=== PATIENT | female | born 1980 | race African-American/Black ===

== ENCOUNTER 2017-11-08 15:04 | Inpatient (IN) | payer BC, OTHER ==
[2017-11-08 15:11] VITALS: BMI 34.0
[2017-11-08] MEDS ORDERED: AMPICILLIN VIAL 2 GM 2 GM in NS 100 ML IV + SPIKE MINIBAG* 100 ML IV SCH (15:15)
[2017-11-08 15:40] LABS: BILIRUBIN,URINE NEGATIVE (NEGATIVE); BLOOD/HEMOGLOBIN,URINE 4+ (NEGATIVE); GLUCOSE, URINE NEGATIVE (NEGATIVE); KETONES,URINE NEGATIVE (NEGATIVE); LEUKOCYTE ESTERASE ,URINE 3+ (NEGATIVE); NITRITES,URINE NEGATIVE (NEGATIVE); PROTEIN,URINE NEGATIVE (NEGATIVE); UROBILINOGEN,URINE NORMAL (NORMAL)
[2017-11-08] MEDS ORDERED: NS 100 ML IV 100 ML IV ONE (15:42)
[2017-11-08] MEDS ORDERED: D5LR 1L W PITOCIN 10 UNITS/L 10 UNITS/1,000 ML BAG IV ONE (15:42)
[2017-11-08] MEDS ORDERED: D5 1/2 NS 1000 ML 1,000 ML IV ONE (15:43)
[2017-11-08] MEDS ORDERED: D5 1/2 NS 1L W PITOCIN 20 UNITS/L 20 UNITS/1,000 ML BAG IV ONE (15:43)
[2017-11-08] MEDS ORDERED: AMPICILLIN VIAL 2 GM ONE (15:43)
[2017-11-08] MEDS ORDERED: PITOCIN ONE (15:43)
[2017-11-08 15:49] LABS: APPEARANCE,URINE HAZY (CLEAR); COLOR,URINE YELLOW (YELLOW); RBC,URINE 0-5 /HPF (NONE SEEN)
[2017-11-08 15:50] LABS: BACTERIA,URINE 1+ /HPF (NEGATIVE); SQUAMOUS EPITHELIAL CELL,UR FEW /HPF (NEGATIVE)
[2017-11-08 16:02] LABS: AMNISURE ROM TEST THERE IS A RUPTURE (NO RUPTURE)
[2017-11-08 16:10] LABS: BASOPHILS # (AUTO) 0.1 X10^3/uL (0.0-0.1); BASOPHILS % (AUTO) 1.1 % (0.2-1.0); EOSINOPHILS % (AUTO) 0.3 % (0.9-2.9); HEMATOCRIT 36.4 % (36.0-47.0); HEMOGLOBIN 12.3 g/dL (12.0-16.0); LYMPHOCYTES # (AUTO) 2.4 X10^3/uL (1.3-2.9); LYMPHOCYTES % (AUTO) 20.3 % (21.0-51.0); MEAN CORPUSCULAR HEMOGLOBIN 27.1 pg (27.0-34.0); MEAN CORPUSCULAR HGB CONC 33.8 g/dL (33.0-35.0); MEAN CORPUSCULAR VOLUME 80.3 fL (80.0-100.0); MEAN PLATELET VOLUME 9.5 fL (7.4-11.0); NEUTROPHILS # (AUTO) 8.5 x10^3/uL (2.2-4.8); NEUTROPHILS % (AUTO) 70.3 % (42.0-75.0); PLATELET COUNT 194 X10^3/uL (150.0-450.0); RED BLOOD COUNT 4.54 X10^6/uL (3.5-5.4); RED CELL DISTRIBUTION WIDTH 15.3 % (11.6-16.5); WHITE BLOOD COUNT 12.1 X10^3/uL (3.6-10.0)
[2017-11-08 16:16] LABS: BLOOD UREA NITROGEN 6 mg/dL (7-18); CALCIUM 8.5 mg/dL (8.5-10.1); CARBON DIOXIDE 20.9 mmol/L (21-32); CHLORIDE 106 mmol/L (98-107); CREATININE 0.68 mg/dL (0.55-1.02); SODIUM 139 mmol/L (136-145); eGFR BLACK RACES > 60 (>60); eGFR NON BLACK RACES > 60 (>60)
[2017-11-08] MEDS ORDERED: NUBAIN INJ 200 MG VIAL MULTIDOSE IVP PRN (16:29)
[2017-11-08] MEDS ORDERED: REGLAN INJ 10 MG VIAL IVP PRN ×2 (16:29→18:29)
[2017-11-08] MEDS ORDERED: PHENERGAN INJ 25 MG IV PRN ×3 (16:29→18:29)
[2017-11-08] MEDS ORDERED: PITOCIN IVP ONE (16:29)
[2017-11-08] MEDS ORDERED: D5LR 1L W PITOCIN 10 UNITS/L 10 UNITS/1,000 ML BAG IV PRN (16:29)
--- NOTE | 2017-11-08 16:56 | DR.OB ---
OB Quick Note - Assessment/Plan Assessment/Plan: L&D 11/08/17 at 4:50pm Pitocin=4mu/min. Ampicillin S-No complaint except CTX. O-Afebrile,VSS ZLB=[id number] with good LTV, +accel, no decel. CTX=q 1 1/2 to 2 min., strong by palpation CVX=4-5cm/75%/-1/VTX SROM with clear fluid. IUPC and FSE placed. A-IUP at 38 6/7 weeks with SROM in labor +GBS P-Cont. pitocin induction/ABX in labor. Anticipate
[2017-11-08] MEDS ORDERED: D5 1/2 NS 1000 ML 1,000 ML IV SCH (17:00)
[2017-11-08] MEDS ORDERED: MOTRIN TAB 800 MG PO PRN (17:35)
--- NOTE | 2017-11-08 17:35 | DR.OB ---
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 complete and pushing. Head delivered over intact perineum. Nuchal cord x 1 reduced. Nose and mouth bulb suctioned. Body delivered over intact perineum. Cord clamped x 2 and cut. Cord sent for gases. Placenta delivered spontaneously / intact / 3 vessel cord. No CVX / vaginal / perineal tears. Viable male , VTX/OA, wt=6'10" and 9/9, stable to NBN. Mother stable to RR. DAG=441fi.
[2017-11-08] MEDS ORDERED: D5 1/2 NS 1000 ML 1,000 ML with PITOCIN 20 UNITS IV SCH ×2 (18:00)
[2017-11-08] MEDS ORDERED: MILK OF MAGNESIA PO PRN (18:29)
[2017-11-08] MEDS ORDERED: AMBIEN PO PRN (18:29)
[2017-11-08] MEDS ORDERED: ADACEL TDaP IM ONE ×2 (18:29→21:11)
[2017-11-08] MEDS ORDERED: DERMOPLAST SPRAY TOP PRN (18:29)
[2017-11-08] MEDS ORDERED: AMPICILLIN VIAL 1 GM 1 GM in NS 50 ML IV + SPIKE MINIBAG* 50 ML IV SCH (19:15)
[2017-11-08] MEDS: MOTRIN TAB 800 MG PO PRN (19:29)
[2017-11-08] MEDS ORDERED: POTASSIUM CHLORIDE LIQ 20 MEQ UDC PO PRN (19:39)
[2017-11-08] MEDS: ZANTAC PO SCH (20:49)
[2017-11-09] MEDS ORDERED: D5 1/2 NS 1000 ML 1,000 ML with PITOCIN 20 UNITS IV SCH ×2 (02:00)
[2017-11-09 06:15] LABS: HEMATOCRIT 34.5 % (36.0-47.0); HEMOGLOBIN 11.6 g/dL (12.0-16.0)
[2017-11-09] MEDS: ZANTAC PO SCH ×2 (08:00→21:12)
[2017-11-09] MEDS: PRENATAL PLUS PO SCH (08:00)
[2017-11-10] MEDS: MOTRIN TAB 800 MG PO PRN (03:36)
[2017-11-10] MEDS: PRENATAL PLUS PO SCH (08:09)
[2017-11-10] MEDS: ZANTAC PO SCH (08:10)
[2017-11-10 13:35] VITALS: BP 136/72
== END 2017-11-10 14:45 | disposition home or self-care (01) | DRG 775 ==
LOC: ER 15:28 → LD 15:40 → MED/SURG 18:30
PROVIDERS: ADMIT Specialist; ATTEND Specialist
PROC: 10E0XZZ Delivery of Products of Conception, External Approach (ICD-10-PCS; principal; 2017-11-08)
PROC: 3E0234Z Introduction of Serum, Toxoid and Vaccine into Muscle, Percutaneous Approach (ICD-10-PCS; 2017-11-08)
DX: O99.824 Streptococcus B carrier state complicating childbirth (principal); Z37.0 Single live birth; O09.513 Supervision of elderly primigravida, third trimester; Z3A.38 38 weeks gestation of pregnancy; Z23 Encounter for immunization
CPT/HCPCS: 36415; 59409; 80048; 81001; 84112; 84132; 85014; 85018; 85025; 86592; 86850; 86900; 86901; 87086; 96365; 99284; A4216; A4222; S0197; J0290; J2590; J7042

== ENCOUNTER 2019-10-29 06:21 | Inpatient (IN) ==
[2019-10-29] MEDS ORDERED: D5 1/2 NS 1000 ML 1,000 ML IV ONE (06:27)
--- NOTE | 2019-10-29 07:13 | DR.OB ---
OB Quick Note - Assessment/Plan Assessment/Plan: L&D 10/29/19 at 7:05am S-No complaint except CTX. O-Afebrile,VSS CJA=[id number] with good LTV, +accel, no decel. CTX=irregular q 6-10 min., moderate by palpation. CVX=5cm/50%/-1/VTX. AROM with clear fluid. IUPC and FSE placed. A-IUP at 40 0/7 weeks for induction P-Begin pitocin induction Anticipate
[2019-10-29] MEDS ORDERED: D5 1/2 NS 1L W PITOCIN 20 UNITS/L 20 UNITS/1,000 ML BAG IV ONE (07:36)
[2019-10-29] MEDS ORDERED: PITOCIN ONE (07:36)
[2019-10-29] MEDS ORDERED: PITOCIN IVP ONE (08:50)
[2019-10-29] MEDS ORDERED: PHENERGAN INJ 25 MG IM PRN ×2 (08:50→10:00)
[2019-10-29] MEDS ORDERED: MORPHINE SULFATE INJ 2 MG INJ IVP PRN (08:50)
[2019-10-29] MEDS ORDERED: D5LR 1L W PITOCIN 10 UNITS/L 10 UNITS/1,000 ML BAG IV PRN (08:50)
[2019-10-29] MEDS ORDERED: D5 1/2 NS 1000 ML 1,000 ML IV SCH (08:50)
[2019-10-29] MEDS ORDERED: REGLAN INJ 10 MG VIAL IVP PRN (08:50)
[2019-10-29] MEDS ORDERED: NUBAIN INJ 200 MG VIAL MULTIDOSE IVP PRN (08:50)
[2019-10-29] MEDS ORDERED: MOTRIN TAB 800 MG PO PRN (10:00)
--- NOTE | 2019-10-29 10:00 | DR.OB ---
OB Quick Note - Assessment/Plan Assessment/Plan: Delivery Note [employer] 10/29/19 at 9:41am Patient complete and pushing. Head delivered over intact perineum. No nuchal cord. Nose and mouth bulb suctioned. Body delivered over intact perineum. Cord clamped x 2 and cut. handed to attendant. Cord sent for gases. Placenta delivered spontaneously / intact / 3 vessel cord. No CVX / vaginal / perineal tears. Viable female infant, VTX/OA, wt=8'3" and 7/9, stable to NBN. Mother stable to RR. VHM=817cg.
[2019-10-29] MEDS ORDERED: ADACEL or BOOSTRIX TDaP VACCINE IM ONE (11:17)
[2019-10-29] MEDS ORDERED: AMBIEN PO PRN (11:17)
[2019-10-29] MEDS ORDERED: DERMOPLAST SPRAY TOP PRN (11:17)
[2019-10-29] MEDS ORDERED: MILK OF MAGNESIA PO PRN (11:17)
[2019-10-29] MEDS ORDERED: PERCOCET TAB 5/325 MG PO PRN (15:50)
[2019-10-29] MEDS: D5 1/2 NS 1000 ML 1,000 ML with PITOCIN 20 UNITS IV SCH ×2 (22:45)
[2019-10-30] MEDS: D5 1/2 NS 1000 ML 1,000 ML with PITOCIN 20 UNITS IV SCH ×4 (04:22→10:41)
[2019-10-30 05:10] LABS: HEMATOCRIT 35.7 % (36.0-47.0); HEMOGLOBIN 11.9 g/dL (12.0-16.0)
[2019-10-30] MEDS ORDERED: PRENATAL PLUS PO SCH (09:00)
[2019-10-30 13:09] VITALS: BP 127/65
== END 2019-10-30 13:50 | disposition home or self-care (01) | DRG 807 ==
LOC: LD 06:35 → MED/SURG 11:16
PROVIDERS: ADMIT Specialist; ATTEND Specialist
DX: D50.8 Other iron deficiency anemias; Z37.0 Single live birth; O99.013 Anemia complicating pregnancy, third trimester; Z3A.40 40 weeks gestation of pregnancy
CPT/HCPCS: 36415; 59409; 85014; 85018; A4216; A4222; S0197